=== PATIENT | female | born 1930 | race Caucasian/White ===

== ENCOUNTER → 2017-12-24 | Outpatient (CLI) | payer MEDICARE, OTHER ==
[~2017-12-24] MED LIST: ACET-2031 PO; ACET650T40 PO; ALE10 PO; AMOX-559 PO; ASP325 PO; ASPI-757 PO; CHOL10005 PO; CHOL400C10 PO; CODE118S5 PO; DIGO125T73 PO; DILT240C4 PO; DOCU100T19 PO; FISH OIL1 CAP PO; FLE100 PO; FLU IM; GLUC1TAB44 PO; LEV500 PO; LEVO-311 PO; LEVO50TA80 PO; LEVO50TA86 PO; LOSA-51 PO; MAGN296S6 PO; METO25TA23 PO; METO25TA91 PO; METO25TA93 PO; METO50TA19 PO; METXL50 PO; OMEG-47 PO; OND4 PO; OSC600 PO; PNEU0.5D3 IM; PSYL3.4P2 PO; RIVA10TA PO; RIVA20TA PO; VIT-7 PO; [UNRECOGNIZED DRUG - CODE] PO
[2017-12-24 10:01] LABS: PLATELET COUNT, AUTOMATED 149 K/uL (150-450)
--- NOTE | 2017-12-24 10:36 | RADIOLOGY IMAGING REPORT ---
FACILITY: [facility] - [place] PATIENT NAME: Chris Cash : 1930 MR: [id number] V: [id number] EXAM DATE: ORDERING PHYSICIAN: JOSE OAKLEY TECHNOLOGIST: Location: [facility] Patient: Chris Cash : 1930 Visit/Account:[id number] Date of Sevice: 12/24/2017 Technique: KUB SINGLE VIEW ABDOMEN HISTORY: Chronic constipation Comparison studies: Abdominal radiographs August 17, 2016 FINDINGS: Imaged portions of the lung bases are clear. No focal air-fluid levels are significantly d istended loops of bowel. Moderate stool volume is seen throughout the colon. Degenerative changes a re noted within the visualized osseous structures. IMPRESSION: 1. No acute intra-abdominal process. 2. Moderate stool volume throughout the colon. Report Dictated By: Manuel Lombardi DO at 12/24/2017 10:30 AM Report E-Signed By: Manuel Lombardi DO at 12/24/2017 10:31 AM WSN:[email or web address]
--- NOTE | 2017-12-24 14:01 | RADIOLOGY IMAGING REPORT ---
FACILITY: [facility] PATIENT NAME: Chris COOLEY : [id number] MR: [id number] V: [id number] EXAM DATE: ORDERING PHYSICIAN: JOSE OAKLEY TECHNOLOGIST: Esther Jacob PROCEDURE:BILATERAL DIGITAL SCREENING MAMMOGRAM WITH CAD ASSISTED INTERPRETATION & 3D TOMOSYNTHESIS COMPARISON:Prior mammograms 12/23/16, 12/23/15, 12/19/14, 12/18/13, 12/08/13, 11/15/12. INDICATIONS:SCREENING FINDINGS: Moderately dense fibroglandular tissue is seen throughout the breasts. The parenchymal pattern has remained stable allowing for difference in mammographic technique & patient positioning. There is no evidence of malignant appearing mass, malignant appearing calcifications or other secondary sign of malignancy in either breast. DIAGNOSTIC CATEGORY 1--NEGATIVE. RECOMMENDATIONS: ROUTINE MAMMOGRAM AND CLINICAL EVALUATION. IMPRESSION: BIRADS 1: Negative No significant abnormality is seen. Dictated by: Madisyn Sanchez M.D. on 12/24/2017 at 11:55 Transcribed by: EMILY on 12/24/2017 at 13:03 Approved by: Madisyn Sanchez M.D. on 12/24/2017 at 14:00 [facility]
== END ==
LOC: LAB 09:16
PROVIDERS: ATTEND Emergency Medicine
DX: Z12.31 Encounter for screening mammogram for malignant neoplasm of breast (principal); K59.00 Constipation, unspecified
CPT/HCPCS: 36415; 74018; 77063; 77067; 82310; 82374; 82435; 82565; 82947; 83970; 84132; 84295; 84520; 85025

== ENCOUNTER → 2017-12-31 | Outpatient (CLI) | payer MEDICARE, OTHER ==
--- NOTE | 2017-12-31 14:52 | RADIOLOGY IMAGING REPORT ---
[place] [facility] [place] Chris Cash : 1930 MR: [id number] V: [id number] EXAM DATE: ORDERING PHYSICIAN: JOSE OAKLEY TECHNOLOGIST: Location: [facility] Patient: Chris Cash : 1930 Visit/Account:[id number] Date of Sevice: 12/31/2017 THYROID HISTORY: hyperparathyroidism COMPARISON: None. FINDINGS: SIZE: Normal. Right lobe: 4.2 x 1.1 x 0.9 cm Left lobe: 4.3 x 1.4 x 0.9 cm Isthmus: 2 mm PARENCHYMA: Mildly heterogeneous NODULES: Right lobe: * None discrete. Left lobe: * There is an 8.1 mm partially calcified nodule in the mid left lobe Isthmus: * None discrete. VASCULARITY: Within normal limits. ADDITIONAL FINDINGS: Parathyroid glands were not incidentally identified IMPRESSION: Slightly heterogeneous thyroid gland 8.1 mm partially calcified nodule in the mid left lobe REFERENCE: 2015 [place] [employer] Management Guidelines for Adult Patients with Thyroid Nodules and D ifferentiated Thyroid Cancer: The [place] [employer] Guidelines Task Force on Thyroid Nodul es and Differentiated Thyroid Cancer. SONOGRAPHIC PATTERNS: * Benign: Purely cystic nodules (no solid component); estimated risk of malignancy <1 percent; no bi opsy recommended. * Very Low Suspicion: Spongiform or partially cystic nodules without any of the sonographic features described in low, intermediate, or high suspicion patterns; estimated risk of malignancy <3 percent; consider FNA at > 2 cm (Observation without FNA is also a reasonable option). * Low Suspicion: Isoechoic or hyperechoic solid nodule, or partially cystic nodule with eccentric so lid areas, without microcalcification, irregular margin or ETE (extra-thyroidal extension), or taller than wide shape; estimated risk of malignancy 5-10 percent; recommend FNA at >1.5 cm. * Intermediate Suspicion: Hypoechoic solid nodule with smooth margins without microcalcifications, E TE (extra-thyroidal extension), or taller than wide shape; estimated risk of malignancy 10-20 percent ; recommend FNA at > 1 cm. * High Suspicion: Solid hypoechoic nodule or solid hypoechoic component of a partially cystic nodule with one or more of the following features: irregular margins (infiltrative, microlobulated), microc alcifications, taller than wide shape, rim calcifications with small extrusive soft tissue component, evidence of ETE (extra-thyroidal extension); estimated risk of malignancy >70-90 percent; recommend FNA at > 1 cm. NOTES: * Although a sonographically suspicious subcentimeter thyroid nodule without evidence of extrathyroi brain extension or sonographically suspicious lymph nodes may be observed with close sonographic follow -up rather than pursuing immediate FNA, patient age and preference may modify decision-making. A > 50% interval increase in nodule volume and/or development of new suspicious sonographic features are felt to be a valid reasons for potential re-aspiration of a nodule previously shown to have benig n FNA cytology. Report Dictated By: Madisyn Sanchez MD at 12/31/2017 2:43 PM Report E-Signed By: Madisyn Sanchez MD at 12/31/2017 2:47 PM WSN:[email or web address]
== END ==
LOC: US 02:04
PROVIDERS: ATTEND Emergency Medicine
DX: E04.9 Nontoxic goiter, unspecified (principal)
CPT/HCPCS: 76536

== ENCOUNTER → 2018-01-04 | Outpatient (CLI) | payer MEDICARE, OTHER ==
--- NOTE | 2018-01-04 14:38 | RADIOLOGY IMAGING REPORT ---
FACILITY: [facility] - [place] PATIENT NAME: Chris Cash : 1930 MR: [id number] V: [id number] EXAM DATE: [id number] ORDERING PHYSICIAN: JOSE OAKLEY TECHNOLOGIST: Location: [facility] - [place] Patient: Chris Cash : 1930 Visit/Account:[id number] Date of Sevice: 01/04/2018 Exam type: KUB SINGLE VIEW ABDOMEN History: chronic constipation Comparison: 12/24/2017. Findings: Bowel gas pattern is nonspecific. No definite constipation or obstruction or free air. Calcifications the pelvis are likely phleboliths. The osseous structures demonstrate osteopenia and a moderate lumbar scoliosis. Vascular calcificatio n is noted. IMPRESSION: 1. Nonspecific bowel gas pattern. No evidence for obstruction, free air or constipation. Report Dictated By: Shaggy Mandujano MD at 01/04/2018 2:33 PM Report E-Signed By: Shaggy Mandujano MD at 01/04/2018 2:34 PM WSN:[email or web address]
== END ==
LOC: RAD 13:46
PROVIDERS: ATTEND Emergency Medicine
DX: I87.8 Other specified disorders of veins (principal); M85.88 Other specified disorders of bone density and structure, other site; M41.86 Other forms of scoliosis, lumbar region; I25.10 Atherosclerotic heart disease of native coronary artery without angina pectoris
CPT/HCPCS: 74018

== ENCOUNTER → 2018-01-25 | Outpatient (CLI) | payer MEDICARE, OTHER ==
--- NOTE | 2018-01-25 13:30 | RADIOLOGY IMAGING REPORT ---
[place] [facility] [place]IENT NAME: Chris Cash : 1930 MR: [id number] V: [id number] EXAM DATE: ORDERING PHYSICIAN: JOSE OAKLEY TECHNOLOGIST: Location: [facility] Patient: Chris Cash : 1930 Visit/Account:[id number] Date of Sevice: 01/25/2018 DEXA Scan Clinical history: Hyperparathyroidism. Comparison: DEXA scan from 11/07/2007. LUMBAR SPINE: The bone mineral density (BMD) measured from L1-L4 correlates with a Z-score of 0.1 and a T-score of -1.5 which is osteopenia as defined by the World Health Organization. The corresponding risk of frac ture in the lumbar spine is 3 times increased compared with a young adult reference population. This value has decrease by 7.9 % since the prior study. More than 5% change is considered significant. HIP: Bone mineral density (BMD) measured in the LEFT total hip region correlates with a Z-score -0.3 and a T-score of -2.4 which is osteopenia as defined by the World Health Organization. The corresponding risk of fracture in the hip is 4-6 times increased compared to a young adult reference population. Th is value has decrease by 5.8 % since the prior study. More than 5% change is considered significant. T score left femoral neck -2.1 Bone mineral density (BMD) measured in the Femoral Neck region measures 0.736 g/cm?. IMPRESSION: 1. Lumbar spine: Osteopenia. There has been 7.9% decrease in the bone mineral density since the pre vious exam. 2. Left Total Hip: Osteopenia. There has been 5.8% decrease in the bone mineral density since the p revious exam. 3. Femoral Neck: Bone Mineral Density is 0.736 g/cm? The next DEXA scan of this patient should include the following sites: L1-L4 and the left hip. FRAX? WHO Fracture Risk Assessment Tool link: <http://www.shef.ac.uk/FRAX/tool.jsp?locationValue=9> PLEASE NOTE: 1) The World Health Organization defines low BMD as follows: T-score Normal > -1 Osteopenia < -1 and > -2.5 Osteoporosis < -2.5 without fractures Established osteoporosis < -2.5 with fractures 2) In general, you may wish to consider: Diagnosis Treatment Follow-up DEXA Normal BMD Prevention 2-3 years Osteopenia Prevention/therapy 1-2 years Osteoporosis Therapy Yearly 3) Fracture risk estimated from the T-score is more accurate for vertebral fractures (often spontane ous) than for hip fractures. Report Dictated By: Madisyn Sanchez MD at 01/25/2018 1:25 PM Report E-Signed By: Madisyn Sanchez MD at 01/25/2018 1:26 PM WSN:[email or web address]
== END ==
LOC: RAD 06:58
PROVIDERS: ATTEND Emergency Medicine
DX: M85.88 Other specified disorders of bone density and structure, other site (principal)
CPT/HCPCS: 77080

== ENCOUNTER → 2018-02-23 | Outpatient (CLI) | payer MEDICARE, OTHER | LOC: LAB 08:01 | PROVIDERS: ATTEND Internal Medicine Cardiovascular Disease | DX: Z13.220 Encounter for screening for lipoid disorders (principal); I48.0 Paroxysmal atrial fibrillation | CPT/HCPCS: 36415; 82040; 82247; 82310; 82374; 82435; 82465; 82565; 82947; 83718; 84075; 84132; 84155; 84295; 84450; 84460; 84478; 84520 ==

== ENCOUNTER → 2018-09-16 | Outpatient (CLI) | payer MEDICARE, OTHER ==
[~2018-09-16] MED LIST changes: +FLU180SY11 IM
[2018-09-16 09:31] LABS: PLATELET COUNT, AUTOMATED 169 K/uL (150-450)
== END ==
LOC: LAB 09:14
PROVIDERS: ATTEND Emergency Medicine
DX: M85.80 Other specified disorders of bone density and structure, unspecified site (principal); R73.03 Prediabetes; E03.9 Hypothyroidism, unspecified; I10 Essential (primary) hypertension
CPT/HCPCS: 36415; 82040; 82247; 82306; 82310; 82374; 82435; 82465; 82565; 82947; 83036; 83718; 84075; 84132; 84155; 84295; 84443; 84450; 84460; 84478; 84520; 85025

== ENCOUNTER → 2018-10-10 | Outpatient (CLI) | payer MEDICARE, OTHER ==
[~2018-10-10] MED LIST changes: +LINA145C PO
== END ==
LOC: LAB 15:20
PROVIDERS: ATTEND Emergency Medicine
DX: R20.8 Other disturbances of skin sensation (principal)
CPT/HCPCS: 36415; 82607

== ENCOUNTER → 2018-12-27 | Outpatient (CLI) | payer MEDICARE, OTHER ==
--- NOTE | 2018-12-28 11:52 | RADIOLOGY IMAGING REPORT ---
FACILITY: [facility] - [place] PATIENT NAME: Chris COOLEY : [id number] MR: [id number] V: [id number] EXAM DATE: ORDERING PHYSICIAN: JOSE OAKLEY TECHNOLOGIST: Kathy St PROCEDURE:BILATERAL DIGITAL SCREENING MAMMOGRAM WITH CAD ASSISTED INTERPRETATION & 3D TOMOSYNTHESIS COMPARISON:Prior mammograms 12/24/17, 12/23/16, 12/23/15, 12/19/14, 12/18/13, 12/08/13. INDICATIONS:SCREENING FINDINGS: The breasts are heterogeneously dense which can obscure small masses. The parenchymal pattern has remained stable allowing for difference in mammographic technique & patient positioning. DIAGNOSTIC CATEGORY 1--NEGATIVE. RECOMMENDATIONS: ROUTINE MAMMOGRAM AND CLINICAL EVALUATION. IMPRESSION: BIRADS 1: Negative. No significant abnormality is seen. Dictated by: Madisyn Sanchez M.D. on 12/27/2018 at 16:40 Transcribed by: EMILY on 12/28/2018 at 11:34 Approved by: Madisyn Sanchez M.D. on 12/28/2018 at 11:51 [facility]
== END ==
LOC: MAMO 00:44
PROVIDERS: ATTEND Emergency Medicine
DX: Z12.31 Encounter for screening mammogram for malignant neoplasm of breast (principal); Z80.3 Family history of malignant neoplasm of breast
CPT/HCPCS: 77063; 77067

== ENCOUNTER → 2019-03-21 | Outpatient (CLI) | payer MEDICARE, OTHER | LOC: LAB 11:03 | PROVIDERS: ATTEND Internal Medicine Cardiovascular Disease | DX: I48.0 Paroxysmal atrial fibrillation (principal); I10 Essential (primary) hypertension | CPT/HCPCS: 36415; 82040; 82247; 82310; 82374; 82435; 82465; 82565; 82947; 83718; 84075; 84132; 84155; 84295; 84450; 84460; 84478; 84520 ==

== ENCOUNTER → 2019-04-10 | Outpatient (CLI) | payer MEDICARE, OTHER ==
[~2019-04-10] MED LIST changes: +LEVO25TA61 PO
== END ==
LOC: LAB 15:35
PROVIDERS: ATTEND Emergency Medicine
DX: E03.9 Hypothyroidism, unspecified (principal)
CPT/HCPCS: 36415; 84443